=== PATIENT | female | born 1995 | race African-American/Black ===

== ENCOUNTER 2017-10-14 06:14 | Emergency (ER) | payer MEDICAID ==
[~2017-10-14] VITALS: Ht 162.6 cm; Wt 59.0 kg
[2017-10-14 06:16] VITALS: BP 112/68
== END 2017-10-14 08:25 | disposition left against medical advice (07) ==
LOC: EDBD 06:14 → ER 06:14
DX: F41.9 Anxiety disorder, unspecified (principal); Z53.21 Procedure and treatment not carried out due to patient leaving prior to being seen by health care provider

== ENCOUNTER 2019-04-02 00:40 | Emergency (ER) | payer MEDICAID ==
[~2019-04-02] VITALS: Ht 165.1 cm; Wt 82.0 kg
[2019-04-02] MEDS ORDERED: ASPIRIN 325MG EC TABLET PO ONE (03:45)
[2019-04-02 04:35] VITALS: BP 96/62
== END 2019-04-02 04:35 | disposition home or self-care (01) ==
LOC: ER 00:40
DX: R07.89 Other chest pain (principal); R06.02 Shortness of breath; J45.909 Unspecified asthma, uncomplicated
CPT/HCPCS: 71045; 93005; 99283

== ENCOUNTER 2021-08-03 02:07 | Emergency (ER) | payer MEDICAID ==
[~2021-08-03] VITALS: Ht 165.1 cm; Wt 83.0 kg
[2021-08-03] MEDS ORDERED: METHOCARBAMOL 500MG TABLET PO ONE (03:00)
[2021-08-03] MEDS ORDERED: KETOROLAC 60MG/2ML VIAL IM ONE (03:00)
[2021-08-03 03:03] VITALS: BP 110/66
== END 2021-08-03 05:31 | disposition home or self-care (01) ==
LOC: ER 02:07
DX: R20.2 Paresthesia of skin (principal); J45.909 Unspecified asthma, uncomplicated; F12.10 Cannabis abuse, uncomplicated
CPT/HCPCS: 70450; 81025; 96372; 99284; J1885

== ENCOUNTER 2023-09-05 09:37 | Emergency (ER) | payer MEDICAID ==
[~2023-09-05] VITALS: Ht 167.6 cm; Wt 79.4 kg
[2023-09-05 09:53] VITALS: BP 105/69; PULSE 86; RESP 16; TEMP 98.2; O2SAT 98
[2023-09-05] MEDS ORDERED: IBUP-2778 MT (11:59)
[2023-09-05] MEDS ORDERED: IBUPROFEN 100MG/5ML UDC PO ONE (12:00)
[2023-09-05] MEDS ORDERED: DEXAMETHASONE 10 MG/ML VIAL PO ONE (12:00)
== END 2023-09-05 13:23 | disposition home or self-care (01) ==
LOC: ER 09:37
DX: J03.90 Acute tonsillitis, unspecified (principal); F12.10 Cannabis abuse, uncomplicated; J45.909 Unspecified asthma, uncomplicated; Z20.822 Contact with and (suspected) exposure to COVID-19
CPT/HCPCS: 87430; 87070; 87804 ×2; 99283; 87426; J1100; C9803; Z7610

== ENCOUNTER 2024-05-06 09:21 | Emergency (ER) | payer MEDICAID ==
[~2024-05-06] VITALS: Ht 167.6 cm; Wt 81.0 kg
[~2024-05-06 09:21] MED LIST: IBUP-2778 MT
[2024-05-06 09:25] VITALS: O2SAT 98
[2024-05-06 10:07] LABS: BASOPHILS % 0.7 % (0.0-2.0); EOSINOPHILS % 0.8 % (0.0-5.0); HEMATOCRIT. 38.8 % (36.0-48.0); HEMOGLOBIN. 12.4 g/dL (12.0-16.0); LYMPHOCYTES % 15.7 % (20.0-50.0); MEAN CORPUSCULAR HEMOGLOBIN 27.3 pg (28.0-32.0); MEAN CORPUSCULAR HGB CONC 32.1 g/dL (31.0-37.0); MEAN CORPUSCULAR VOLUME 85.2 fL (81.0-99.0); MEAN PLATELET VOLUME 8.3 fl (7.4-10.4); NEUTROPHILS % 73.8 % (40.0-76.0); PLATELET 238 x1000/uL (130-400); RED BLOOD CELL COUNT 4.55 mill/uL (4.2-5.4); RED CELL DISTRIBUTION WIDTH 14.8 % (11.6-14.6); WHITE BLOOD COUNT 10.8 x1000/uL (4.5-11.0)
[2024-05-06 10:20] LABS: CARBON DIOXIDE 27 mEq/L (21-32); CHLORIDE 106 mEq/L (98-107); POTASSIUM 3.9 mEq/L (3.5-5.1); SODIUM 138 mEq/L (136-145)
[2024-05-06 10:21] LABS: CALCIUM 9.3 mg/dL (8.7-10.4)
[2024-05-06 10:25] LABS: HCG SCREEN NEGATIVE
[2024-05-06 10:26] LABS: CREATININE 0.9 mg/dL (0.6-1.0); GLUCOSE 91 mg/dL (70-105); UREA NITROGEN BLOOD 7 mg/dL (9-23)
[2024-05-06 10:27] LABS: ALANINE AMINOTRANSFERASE 21 IU/L (10-49); ALBUMIN 4.2 g/dL (3.2-4.8); ASPARTATE AMINOTRANSFERASE 22 IU/L (<34)
[2024-05-06 10:28] LABS: BILIRUBIN TOTAL 0.7 mg/dL (0.1-1.0); PROTEIN TOTAL 6.6 g/dL (6.0-8.3)
[2024-05-06 14:11] LABS: CLARITY URINE CLOUDY (CLEAR); COLOR URINE YELLOW (YELLOW); GLUCOSE URINE NEGATIVE (NEGATIVE); KETONES URINE NEGATIVE (NEGATIVE); LEUKOCYTE ESTERASE URINE 3+ (NEGATIVE); NITRITE URINE POSITIVE (NEGATIVE); OCCULT BLOOD URINE 3+ (NEGATIVE); PH URINE 5.5 (4.5-8.0); PROTEIN URINE 1+ (NEGATIVE); SPECIFIC GRAVITY URINE 1.011 (1.005-1.030)
[2024-05-06 14:27] LABS: MUCUS URINE TRACE /lpf (< = 2+); SQUAMOUS EPITHELIAL CELL URINE FEW /lpf (RARE/1+)
[2024-05-06 14:28] LABS: WBC URINE 50-100 /hpf (0-2)
[2024-05-06 14:29] LABS: BACTERIA URINE 4+
[2024-05-06] MEDS ORDERED: CEFP100T8 MT (15:10)
[2024-05-06 15:21] VITALS: BP 101/63; PULSE 88; RESP 18; TEMP 98.4
== END 2024-05-06 15:22 | disposition home or self-care (01) ==
LOC: ER 09:21
DX: N12 Tubulo-interstitial nephritis, not specified as acute or chronic (principal)
CPT/HCPCS: 36415; 74176; 80053; 81003; 84703; 85025; 87077; 87186; 99284

== ENCOUNTER 2024-07-18 09:06 | Emergency (ER) | payer MEDICAID ==
[~2024-07-18] VITALS: Ht 165.1 cm; Wt 81.6 kg
[~2024-07-18 09:06] MED LIST changes: +CEFP100T8 MT
[2024-07-18 09:09] VITALS: O2SAT 100
[2024-07-18 09:42] LABS: BASOPHILS % 1.4 % (0.0-2.0); EOSINOPHILS % 2.2 % (0.0-5.0); HEMATOCRIT. 40.4 % (36.0-48.0); HEMOGLOBIN. 13.3 g/dL (12.0-16.0); LYMPHOCYTES % 26.3 % (20.0-50.0); MEAN CORPUSCULAR HEMOGLOBIN 27.8 pg (28.0-32.0); MEAN CORPUSCULAR HGB CONC 32.8 g/dL (31.0-37.0); MEAN CORPUSCULAR VOLUME 84.8 fL (81.0-99.0); MEAN PLATELET VOLUME 8.2 fl (7.4-10.4); MONOCYTES % 7.4 % (2.0-8.0); NEUTROPHILS % 62.7 % (40.0-76.0); PLATELET 223 x1000/uL (130-400); RED BLOOD CELL COUNT 4.76 mill/uL (4.2-5.4); RED CELL DISTRIBUTION WIDTH 14.7 % (11.6-14.6); WHITE BLOOD COUNT 7.7 x1000/uL (4.5-11.0)
[2024-07-18 09:49] LABS: CHLORIDE 107 mEq/L (98-107); SODIUM 140 mEq/L (136-145)
[2024-07-18 09:50] LABS: CALCIUM 9.7 mg/dL (8.7-10.4); CARBON DIOXIDE 29 mEq/L (21-32)
[2024-07-18 09:55] LABS: GLUCOSE 88 mg/dL (70-105); UREA NITROGEN BLOOD 8 mg/dL (9-23)
[2024-07-18 10:04] LABS: CLARITY URINE CLEAR (CLEAR); COLOR URINE YELLOW (YELLOW); GLUCOSE URINE NEGATIVE (NEGATIVE); KETONES URINE NEGATIVE (NEGATIVE); LEUKOCYTE ESTERASE URINE NEGATIVE (NEGATIVE); NITRITE URINE NEGATIVE (NEGATIVE); OCCULT BLOOD URINE NEGATIVE (NEGATIVE); PROTEIN URINE NEGATIVE (NEGATIVE); SPECIFIC GRAVITY URINE 1.019 (1.005-1.030); UROBILINOGEN URINE 0.2 E.U./dL (0.2-1.0)
[2024-07-18] MEDS ORDERED: ONDA4TAB50 MT (10:44)
[2024-07-18] MEDS: MAGNESIUM/ALUMINUM HYDROXIDE/SIMETHICONE 30ML UDC PO ONE (11:05)
[2024-07-18] MEDS: ONDANSETRON 4MG ODT PO ONE (11:06)
[2024-07-18 11:18] VITALS: BP 101/66; PULSE 79; RESP 18; TEMP 36.50292; O2SAT 100
[2024-07-18 11:21] LABS: HCG SCREEN NEGATIVE
== END 2024-07-18 11:20 | disposition home or self-care (01) ==
LOC: ER 09:06
DX: K52.9 Noninfective gastroenteritis and colitis, unspecified (principal); F12.10 Cannabis abuse, uncomplicated; J45.909 Unspecified asthma, uncomplicated
CPT/HCPCS: 99283; 80048; 81003; 81025; 84703; 85025; 36415; Q0162

== ENCOUNTER 2024-07-30 08:50 | Emergency (ER) | payer MEDICAID ==
[~2024-07-30] VITALS: Ht 165.1 cm; Wt 81.6 kg
[~2024-07-30 08:50] MED LIST changes: +ONDA4TAB50 MT
[2024-07-30 08:52] VITALS: O2SAT 100
[2024-07-30] MEDS ORDERED: ACETAMINOPHEN 325MG TABLET PO ONE (09:30)
[2024-07-30 09:58] LABS: BASOPHILS % 1.2 % (0.0-2.0); EOSINOPHILS % 2.1 % (0.0-5.0); HEMATOCRIT. 39.9 % (36.0-48.0); HEMOGLOBIN. 12.6 g/dL (12.0-16.0); LYMPHOCYTES % 20.6 % (20.0-50.0); MEAN CORPUSCULAR HEMOGLOBIN 26.6 pg (28.0-32.0); MEAN CORPUSCULAR HGB CONC 31.6 g/dL (31.0-37.0); MEAN CORPUSCULAR VOLUME 84.2 fL (81.0-99.0); MEAN PLATELET VOLUME 8.6 fl (7.4-10.4); MONOCYTES % 6.5 % (2.0-8.0); NEUTROPHILS % 69.6 % (40.0-76.0); PLATELET 244 x1000/uL (130-400); RED BLOOD CELL COUNT 4.73 mill/uL (4.2-5.4); RED CELL DISTRIBUTION WIDTH 14.6 % (11.6-14.6); WHITE BLOOD COUNT 8.4 x1000/uL (4.5-11.0)
[2024-07-30 10:03] LABS: CHLORIDE 106 mEq/L (98-107); POTASSIUM 3.9 mEq/L (3.5-5.1); SODIUM 138 mEq/L (136-145)
[2024-07-30 10:04] LABS: CARBON DIOXIDE 28 mEq/L (21-32)
[2024-07-30 10:05] LABS: CALCIUM 9.4 mg/dL (8.7-10.4)
[2024-07-30 10:09] LABS: CREATININE 0.9 mg/dL (0.6-1.0)
[2024-07-30 10:10] LABS: GLUCOSE 90 mg/dL (70-105); UREA NITROGEN BLOOD 6 mg/dL (9-23)
[2024-07-30 10:11] LABS: ALANINE AMINOTRANSFERASE 19 IU/L (10-49); ALBUMIN 4.3 g/dL (3.2-4.8); ASPARTATE AMINOTRANSFERASE 20 IU/L (<34)
[2024-07-30 10:12] LABS: BILIRUBIN DIRECT 0.2 mg/dL (<=3.0); BILIRUBIN TOTAL 0.7 mg/dL (0.1-1.0); HCG SCREEN NEGATIVE; PROTEIN TOTAL 7.1 g/dL (6.0-8.3)
[2024-07-30 11:42] VITALS: BP 126/80; PULSE 74; RESP 16; TEMP 36.94740; O2SAT 99
== END 2024-07-30 11:44 | disposition home or self-care (01) ==
LOC: ER 09:04
DX: R10.30 Lower abdominal pain, unspecified (principal); J45.909 Unspecified asthma, uncomplicated
CPT/HCPCS: 36415; 74176; 80048; 80076; 84703; 85025; 99284

== ENCOUNTER 2024-11-14 13:19 | Emergency (ER) | payer MEDICAID ==
[~2024-11-14] VITALS: Ht 165.1 cm; Wt 79.0 kg
[2024-11-14 13:53] VITALS: O2SAT 98
[2024-11-14] MEDS ORDERED: METH-653 MT (17:37)
[2024-11-14] MEDS ORDERED: IBUP-2029 MT (17:37)
[2024-11-14] MEDS ORDERED: KETOROLAC 30MG/ML VIAL IM ONE (17:45)
[2024-11-14] MEDS ORDERED: METHOCARBAMOL 500MG TABLET PO ONE (17:45)
[2024-11-14 18:58] VITALS: BP 110/70; PULSE 70; RESP 18; TEMP 37.1; O2SAT 98
== END 2024-11-14 19:00 | disposition home or self-care (01) ==
LOC: ER 13:19
DX: M54.40 Lumbago with sciatica, unspecified side (principal); F12.10 Cannabis abuse, uncomplicated; J45.909 Unspecified asthma, uncomplicated; Z79.899 Other long term (current) drug therapy
CPT/HCPCS: 99283

== ENCOUNTER 2025-07-01 16:37 | Emergency (ER) | payer MEDICAID ==
[~2025-07-01] VITALS: Ht 165.1 cm; Wt 82.0 kg
[~2025-07-01 16:37] MED LIST changes: +IBUP-1455 MT; +METH-653 MT
[2025-07-01 16:49] VITALS: O2SAT 99
[2025-07-01 18:28] LABS: BASOPHILS % 0.5 % (0.0-2.0); EOSINOPHILS % 0.6 % (0.0-5.0); HEMATOCRIT. 39.6 % (36.0-48.0); HEMOGLOBIN. 12.7 g/dL (12.0-16.0); LYMPHOCYTES % 14.9 % (20.0-50.0); MEAN PLATELET VOLUME 8.7 fl (7.4-10.4); MONOCYTES % 5.2 % (2.0-8.0); NEUTROPHILS % 78.8 % (40.0-76.0); PLATELET 247 x1000/uL (130-400); RED BLOOD CELL COUNT 4.74 mill/uL (4.2-5.4); RED CELL DISTRIBUTION WIDTH 15.2 % (11.6-14.6)
[2025-07-01 18:40] LABS: HCG SCREEN NEGATIVE
[2025-07-01 18:43] LABS: TROPONIN I HIGH SENSITIVITY < 4 ng/L (3.0-34)
[2025-07-01 18:45] LABS: CREATININE 0.9 mg/dL (0.6-1.0); UREA NITROGEN BLOOD 7 mg/dL (9-23)
[2025-07-01 18:47] LABS: ASPARTATE AMINOTRANSFERASE 19 IU/L (<34); BILIRUBIN DIRECT 0.3 mg/dL (<=3.0); BILIRUBIN TOTAL 0.9 mg/dL (0.1-1.0); PROTEIN TOTAL 7.4 g/dL (6.0-8.3)
[2025-07-01 19:22] VITALS: BP 106/64; PULSE 84; RESP 18; TEMP 36.9; O2SAT 98
== END 2025-07-01 19:23 | disposition home or self-care (01) ==
LOC: ER 16:37
DX: R07.9 Chest pain, unspecified (principal); F41.9 Anxiety disorder, unspecified
CPT/HCPCS: 36415; 71045; 80048; 80076; 81025; 84484; 84703; 85025; 93005; 99285

== ENCOUNTER 2025-07-03 06:17 | Emergency (ER) | payer MEDICAID ==
[~2025-07-03] VITALS: Ht 165.1 cm; Wt 82.0 kg
[2025-07-03 06:20] VITALS: O2SAT 98
[2025-07-03] MEDS ORDERED: CELE100C MT (06:44)
[2025-07-03] MEDS: KETOROLAC 30MG/ML VIAL IM ONE (06:54)
[2025-07-03 07:03] VITALS: BP 101/63; PULSE 79; RESP 14; TEMP 36.8; O2SAT 99
== END 2025-07-03 07:06 | disposition home or self-care (01) ==
LOC: ER 06:17
DX: M79.18 Myalgia, other site (principal); F12.90 Cannabis use, unspecified, uncomplicated; Z79.1 Long term (current) use of non-steroidal anti-inflammatories (NSAID)
CPT/HCPCS: 99283; 81025; 96372; J1885